=== PATIENT | female | born 1955 | race Caucasian/White ===

== ENCOUNTER 2017-11-21 14:31 | Emergency (ER) | payer SELFPAY ==
[2017-11-21] MEDS ORDERED: Meclizine HCl 25 MG TAB ONE (15:00)
[2017-11-21] MEDS ORDERED: Ondansetron ODT 4 MG TAB ONE (15:00)
[2017-11-21 15:13] LABS: #Lymphocytes 1.1 thou/uL (1.20-3.40); #Monocytes 0.2 thou/uL (0.11-0.59); #Neutrophils 4.9 thou/uL (1.40-6.50); %Basophils 0.6 % (0.0-1.0); %Eosinophils 0.2 % (0.0-10.0); %Lymphocytes 18.1 % (21.0-51.0); %Monocytes 3.3 % (0.0-10.0); %Neutrophils 77.7 % (42.0-75.0); Hemoglobin 12.9 g/dL (12.0-16.0); Mean Corpuscular HGB CONC 33.4 g/dL (32.0-36.0); Mean Corpuscular Hemoglobin 30.1 pg (27.0-31.0); Mean Corpuscular Volume 90.2 fl (81.0-99.0); Mean Platelet Volume 6.8 fL (7.4-10.4); Platelet Count 278 thou/uL (130-400); RBC Distribution Width 12.1 % (11.5-14.5); Red Blood Cell (RBC) Count 4.28 mill/uL (4.20-5.40); White Blood Cell (WBC) Count 6.3 thou/uL (4.8-10.8)
--- NOTE | 2017-11-21 15:28 | CT ---
NONCONTRAST HEAD CT: HISTORY: Vomiting. Dizziness. COMPARISON: None. TECHNIQUE: A noncontrast head CT is performed from the skull base to the skull vertex. FINDINGS: No parenchymal hemorrhage. No extraaxial hematoma. No midline shift. Basilar cisterns are patent. Age appropriate brain volume. Cortical pruitt white matter differentiation is preserved. The ventricles and sulci are patent and symmetric. Periventricular white matter hypodensities with chronic small vessel ischemic changes are noted. Remote lacunar infarct involving the posterior right lentiform nucleus. Hypodensities in the mid bra in are noted. IMPRESSION: No definite acute intracranial process. There are white matter hypodensities, as described above, wh ich are presumed to be chronic. If there is concern for acute insult, better interrogation with a br ain MRI is recommended. POS: [facility]
[2017-11-21 15:32] LABS: ALT (SGPT) 13 U/L (8-55); AST (SGOT) 15 U/L (5-34); Albumin 4.2 g/dL (3.4-4.8); Alkaline Phosphatase 73 U/L (40-150); Anion Gap 12 mmol/L (10-20); BUN (Urea Nitrogen) 15 mg/dL (9.8-20.1); Bilirubin, Total 0.5 mg/dL (0.2-1.2); Calc. Creatinine Clearance 0 mL/min (70-130); Calcium 9.4 mg/dL (7.8-10.44); Carbon Dioxide 26 mmol/L (23-31); Chloride 102 mmol/L (98-107); Estimated GFR-MDRD 72; Globulin 2.9 g/dL (2.4-3.5); Glucose 142 mg/dL (80-115); Potassium 4.1 mmol/L (3.5-5.1); Protein, Total 7.1 g/dL (6.0-8.3); Sodium 136 mmol/L (136-145)
[2017-11-21] MEDS ORDERED: Metoclopramide HCl 10 MG/2 ML VIAL ONE (15:36)
[2017-11-21 15:39] LABS: CKMB 0.8 ng/mL (0-6.6); Troponin I Less than 0.010 ng/mL (< 0.028)
[2017-11-21] MEDS ORDERED: Metoclopramide HCl 10 MG TAB PO SCH (16:15)
[2017-11-21] MEDS ORDERED: diphenhydrAMINE 12.5 MG/5 ML UDCUP ONE (17:22)
[2017-11-21] MEDS ORDERED: diphenhydrAMINE 50 MG/ML VIAL ONE (17:24)
== END 2017-11-21 19:10 | disposition home or self-care (01) ==
LOC: ERS 14:31
DX: H81.13 Benign paroxysmal vertigo, bilateral (principal); E11.9 Type 2 diabetes mellitus without complications; I25.10 Atherosclerotic heart disease of native coronary artery without angina pectoris; I10 Essential (primary) hypertension; F32.9 Major depressive disorder, single episode, unspecified
CPT/HCPCS: 36415; 70450; 80053; 82553; 84484; 85025; 93005; 96361; 96374; J1200; J2765; Q0162

== ENCOUNTER 2021-01-12 19:08 | Emergency (ER) | payer OTHER, MEDICARE | END 2021-01-12 20:46 | disposition home or self-care (01) | LOC: ERS 19:08 | DX: M25.511 Pain in right shoulder (principal); E11.9 Type 2 diabetes mellitus without complications; I10 Essential (primary) hypertension; F17.290 Nicotine dependence, other tobacco product, uncomplicated; I25.10 Atherosclerotic heart disease of native coronary artery without angina pectoris; V49.9XXA Car occupant (driver) (passenger) injured in unspecified traffic accident, initial encounter | CPT/HCPCS: 70450; 71045; 72125 ==

== ENCOUNTER 2022-01-31 22:57 | Emergency (ER) | payer MEDICARE ==
[2022-01-31 23:54] LABS: #Eosinphils 0.1 thou/uL (0.0-0.7); #Lymphocytes 2.1 thou/uL (1.20-3.40); #Monocytes 0.4 thou/uL (0.11-0.59); #Neutrophils 2.6 thou/uL (1.40-6.50); %Basophils 0.9 % (0.0-1.0); %Eosinophils 1.6 % (0.0-10.0); %Monocytes 7.2 % (0.0-10.0); %Neutrophils 50.4 % (42.0-75.0); Hemoglobin 12.9 g/dL (12.0-16.0); Mean Corpuscular HGB CONC 33.3 g/dL (32.0-36.0); Mean Corpuscular Hemoglobin 30.4 pg (27.0-31.0); Mean Corpuscular Volume 91.2 fL (78.0-98.0); Mean Platelet Volume 7.6 fL (7.4-10.4); Platelet Count 276 thou/uL (130-400); RBC Distribution Width 12.3 % (11.5-14.5); Red Blood Cell (RBC) Count 4.25 mill/uL (4.20-5.40); White Blood Cell (WBC) Count 5.1 thou/uL (4.8-10.8)
[2022-02-01 00:10] LABS: Phosphorus 4.6 mg/dL (2.3-4.7)
[2022-02-01 00:16] LABS: ALT (SGPT) 13 U/L (8-55); AST (SGOT) 12 U/L (5-34); Alkaline Phosphatase 107 U/L (40-110); Anion Gap 15 mmol/L (10-20); BUN (Urea Nitrogen) 20 mg/dL (9.8-20.1); Bilirubin, Total 0.3 mg/dL (0.2-1.2); Calc. Creatinine Clearance 0 mL/min (70-130); Calcium 9.6 mg/dL (7.8-10.44); Carbon Dioxide 25 mmol/L (23-31); Chloride 96 mmol/L (98-107); Globulin 2.8 g/dL (2.4-3.5); Potassium 4.5 mmol/L (3.5-5.1); Protein, Total 6.8 g/dL (5.8-8.1); Sodium 131 mmol/L (136-145)
[2022-02-01 00:18] LABS: Glucose 699 mg/dL (80-115)
[2022-02-01] MEDS ORDERED: Insulin Regular 300 UNITS/3 ML VIAL ONE (00:46)
== END 2022-02-01 02:58 | disposition home or self-care (01) ==
LOC: ERS 22:57
DX: E11.65 Type 2 diabetes mellitus with hyperglycemia (principal); I25.10 Atherosclerotic heart disease of native coronary artery without angina pectoris; I10 Essential (primary) hypertension; F17.290 Nicotine dependence, other tobacco product, uncomplicated; Z79.899 Other long term (current) drug therapy
CPT/HCPCS: 36415; 36416; 80053; 82010; 83735; 84100; 85025; J1815

== ENCOUNTER 2022-02-01 21:49 | Emergency (ER) | payer MEDICARE ==
[2022-02-01 22:32] LABS: #Eosinphils 0.1 thou/uL (0.0-0.7); #Lymphocytes 1.8 thou/uL (1.20-3.40); #Monocytes 0.4 thou/uL (0.11-0.59); %Basophils 0.6 % (0.0-1.0); %Eosinophils 1.7 % (0.0-10.0); %Lymphocytes 33.9 % (21.0-51.0); %Monocytes 7.3 % (0.0-10.0); %Neutrophils 56.5 % (42.0-75.0); Hemoglobin 12.2 g/dL (12.0-16.0); Mean Corpuscular HGB CONC 32.9 g/dL (32.0-36.0); Mean Corpuscular Hemoglobin 30.1 pg (27.0-31.0); Mean Corpuscular Volume 91.4 fL (78.0-98.0); Mean Platelet Volume 7.5 fL (7.4-10.4); Platelet Count 274 thou/uL (130-400); RBC Distribution Width 12.5 % (11.5-14.5); Red Blood Cell (RBC) Count 4.06 mill/uL (4.20-5.40); White Blood Cell (WBC) Count 5.2 thou/uL (4.8-10.8)
[2022-02-01 22:51] LABS: ALT (SGPT) 12 U/L (8-55); AST (SGOT) 15 U/L (5-34); Albumin 3.8 g/dL (3.4-4.8); Alkaline Phosphatase 89 U/L (40-110); Anion Gap 15 mmol/L (10-20); BUN (Urea Nitrogen) 12 mg/dL (9.8-20.1); Bilirubin, Total 0.2 mg/dL (0.2-1.2); Calc. Creatinine Clearance 0 mL/min (70-130); Calcium 8.8 mg/dL (7.8-10.44); Carbon Dioxide 23 mmol/L (23-31); Chloride 101 mmol/L (98-107); Globulin 2.6 g/dL (2.4-3.5); Potassium 4.4 mmol/L (3.5-5.1); Protein, Total 6.4 g/dL (5.8-8.1); Sodium 135 mmol/L (136-145)
[2022-02-01 23:02] LABS: Bilirubin Negative (Negative); Blood, Urine Negative (Negative); Clarity Clear (Clear); Glucose, Urine (Dipstick) Greater than 1000 mg/dL (Negative); Ketone, Urine Negative (Negative); Leukocyte Negative Leu/uL (Negative); Nitrite Negative (Negative); Protein, Urine (Dipstick) Negative (Neg-Trace); Specific Gravity, Urine 1.033 (1.002-1.036); Urobilinogen Normal mg/dL (Less than 2); pH, Urine 5.5 (5.0-9.0)
[2022-02-01 23:06] LABS: Glucose 681 mg/dL (80-115)
== END 2022-02-01 23:18 | disposition home or self-care (01) ==
LOC: ERS 21:49
DX: E11.65 Type 2 diabetes mellitus with hyperglycemia (principal); I25.10 Atherosclerotic heart disease of native coronary artery without angina pectoris; I10 Essential (primary) hypertension; Z79.899 Other long term (current) drug therapy; Z79.4 Long term (current) use of insulin; F17.290 Nicotine dependence, other tobacco product, uncomplicated
CPT/HCPCS: 36415; 36416; 80053; 81003; 82010; 83735; 84100; 85025; 99284; J1815

== ENCOUNTER 2022-02-17 16:41 | Inpatient (IN) | payer MEDICARE ==
[2022-02-17] MEDS ORDERED: Ondansetron PF 4 MG/2 ML Vial ONE (17:02)
[2022-02-17 17:07] LABS: Actual Bicarbonate (HCO3v) 17 mEq/L (22-28); Base Excess -10.2 mEq/L (-2.0 to +3.0); Calcium, Ionized (venous) 1.28 mmol/L (1.16-1.32); Chloride (VBG) 92 mmol/L (98-106); Hemoglobin (Hb) 14.4 g/dL (11.7-16.1); Potassium (VBG) 4.17 mmol/L (3.70-5.30); Sodium 135.2 mmol/L (133-146)
[2022-02-17 17:09] LABS: pH (venous) 7.24 (7.32-7.43)
[2022-02-17 17:11] LABS: #Lymphocytes 0.6 thou/uL (1.20-3.40); #Monocytes 0.5 thou/uL (0.11-0.59); #Neutrophils 10.9 thou/uL (1.40-6.50); %Eosinophils 0.1 % (0.0-10.0); %Lymphocytes 5.4 % (21.0-51.0); %Monocytes 3.9 % (0.0-10.0); %Neutrophils 90.7 % (42.0-75.0); Hemoglobin 13.9 g/dL (12.0-16.0); Mean Corpuscular HGB CONC 32.9 g/dL (32.0-36.0); Mean Corpuscular Hemoglobin 30.7 pg (27.0-31.0); Mean Corpuscular Volume 93.2 fL (78.0-98.0); Mean Platelet Volume 6.8 fL (7.4-10.4); Platelet Count 335 thou/uL (130-400); RBC Distribution Width 12.8 % (11.5-14.5); Red Blood Cell (RBC) Count 4.52 mill/uL (4.20-5.40)
[2022-02-17 17:24] LABS: ALT (SGPT) 18 U/L (8-55); AST (SGOT) 17 U/L (5-34); Albumin 4.6 g/dL (3.4-4.8); Alkaline Phosphatase 145 U/L (40-110); Anion Gap 30 mmol/L (10-20); BUN (Urea Nitrogen) 45 mg/dL (9.8-20.1); Bilirubin, Total 0.7 mg/dL (0.2-1.2); Calc. Creatinine Clearance 0 mL/min (70-130); Calcium 10.2 mg/dL (7.8-10.44); Carbon Dioxide 15 mmol/L (23-31); Chloride 92 mmol/L (98-107); Globulin 3.2 g/dL (2.4-3.5); Glucose 534 mg/dL (80-115); Lipase 20 U/L (8-78); Potassium 4.2 mmol/L (3.5-5.1); Protein, Total 7.8 g/dL (5.8-8.1); Sodium 133 mmol/L (136-145)
[2022-02-17] MEDS ORDERED: cefTRIAXone\\ROCEPHIN 1 GM VIAL ONE (17:45)
[2022-02-17] MEDS ORDERED: INSULIN REGULAR IN 0.9 % NACL 100 UNIT/100 ML BAG ONE (18:45)
[2022-02-17 18:46] LABS: Bilirubin 1+ (Negative); Blood, Urine Negative (Negative); Clarity Clear (Clear); Glucose, Urine (Dipstick) Greater than 1000 mg/dL (Negative); Ketone, Urine 80 mg/dL (Negative); Leukocyte Negative Leu/uL (Negative); Nitrite Negative (Negative); Protein, Urine (Dipstick) Negative (Neg-Trace); Specific Gravity, Urine 1.026 (1.002-1.036); Urobilinogen Normal mg/dL (Less than 2)
[2022-02-17] MEDS ORDERED: NS 0.9% w/ 20 MEQ KCL 1,000 ML ONE (19:05)
[2022-02-17] MEDS ORDERED: Dextrose 5 %-0.45 % NaCl 1,000 ML IV PRN (19:28)
[2022-02-17] MEDS ORDERED: Sodium Chloride 0.9% 1,000 ML IV PRN ×4 (19:28)
[2022-02-17] MEDS ORDERED: Electrolyte Replacement Protocol 1 EACH IVPB PRN (19:28)
[2022-02-17] MEDS ORDERED: NS 0.9% w/ 20 MEQ KCL 1,000 ML IV PRN ×2 (19:28)
[2022-02-17] MEDS ORDERED: Zolpidem Tartrate 5 MG TAB PO PRN (19:28)
[2022-02-17] MEDS ORDERED: Bisacodyl 5 MG TAB PO PRN (19:28)
[2022-02-17] MEDS ORDERED: Ondansetron PF 4 MG/2 ML Vial IVP PRN (19:28)
[2022-02-17] MEDS ORDERED: HYDROcodone/Acetaminophen 5/325 mg Tablet PO PRN (19:28)
[2022-02-17] MEDS ORDERED: HUMULIN R 100 UNITS in Sodium Chloride 0.9% 100 ML IVPB SCH (19:30)
[2022-02-17 20:19] LABS: Anion Gap 24 mmol/L (10-20); BUN (Urea Nitrogen) 38 mg/dL (9.8-20.1); Calc. Creatinine Clearance 0 mL/min (70-130); Carbon Dioxide 14 mmol/L (23-31); Chloride 101 mmol/L (98-107); Glucose 356 mg/dL (80-115); Potassium 4.4 mmol/L (3.5-5.1); Sodium 135 mmol/L (136-145)
[2022-02-17 20:21] LABS: Troponin I Less than 0.010 ng/mL (< 0.028)
[2022-02-17 20:59] LABS: SARS-CoV-2 NAA Rapid Test Not Detected (NotDetected)
[2022-02-17] MEDS: Nicotine 21 MG PATCH TD SCH (21:05)
[2022-02-17 22:44] VITALS: BMI 24.5
[2022-02-17] MEDS: Acetaminophen 325 MG TAB PO PRN (23:24)
[2022-02-18 00:44] LABS: Lactic Acid 2.1 mmol/L (0.5-2.2)
[2022-02-18 00:57] LABS: BUN (Urea Nitrogen) 32 mg/dL (9.8-20.1); Calc. Creatinine Clearance 35 mL/min (70-130); Calcium 9.2 mg/dL (7.8-10.44); Carbon Dioxide Less than 8 mmol/L (23-31); Chloride 107 mmol/L (98-107); Glucose 358 mg/dL (80-115); Potassium 5.5 mmol/L (3.5-5.1); Sodium 134 mmol/L (136-145)
[2022-02-18 03:47] LABS: #Lymphocytes 2.3 thou/uL (1.20-3.40); #Monocytes 0.6 thou/uL (0.11-0.59); #Neutrophils 7.8 thou/uL (1.40-6.50); %Basophils 0.2 % (0.0-1.0); %Eosinophils 0.2 % (0.0-10.0); %Lymphocytes 21.3 % (21.0-51.0); %Monocytes 5.8 % (0.0-10.0); %Neutrophils 72.5 % (42.0-75.0); Mean Corpuscular Hemoglobin 31.1 pg (27.0-31.0); Mean Corpuscular Volume 94.1 fL (78.0-98.0); Mean Platelet Volume 6.6 fL (7.4-10.4); Platelet Count 262 thou/uL (130-400); RBC Distribution Width 12.9 % (11.5-14.5); Red Blood Cell (RBC) Count 3.54 mill/uL (4.20-5.40); White Blood Cell (WBC) Count 10.8 thou/uL (4.8-10.8)
[2022-02-18 04:08] LABS: ALT (SGPT) 9 U/L (8-55); AST (SGOT) 13 U/L (5-34); Albumin 3.2 g/dL (3.4-4.8); Alkaline Phosphatase 93 U/L (40-110); Anion Gap 14 mmol/L (10-20); BUN (Urea Nitrogen) 27 mg/dL (9.8-20.1); Bilirubin, Total 0.4 mg/dL (0.2-1.2); Calc. Creatinine Clearance 44 mL/min (70-130); Calcium 8.4 mg/dL (7.8-10.44); Carbon Dioxide 18 mmol/L (23-31); Chloride 108 mmol/L (98-107); Globulin 2.4 g/dL (2.4-3.5); Glucose 148 mg/dL (80-115); Potassium 3.9 mmol/L (3.5-5.1); Protein, Total 5.6 g/dL (5.8-8.1); Sodium 136 mmol/L (136-145)
[2022-02-18 04:12] LABS: Troponin I Less than 0.010 ng/mL (< 0.028)
[2022-02-18] MEDS: D5 1/2 NS w/20 mEq KCL 1,000 ML IV PRN ×3 (04:59→13:07)
[2022-02-18] MEDS ORDERED: Potassium Chloride 20 MEQ TAB PO SCH (08:30)
[2022-02-18] MEDS ORDERED: HumaLOG 300 UNITS/3 ML VIAL SC PRN ×2 (08:45)
[2022-02-18] MEDS ORDERED: Dextrose 5% in Water 1,000 ML IV PRN (08:45)
[2022-02-18] MEDS ORDERED: Dextrose 50% Abboject 50 ML SYRINGE IVP PRN (08:45)
[2022-02-18] MEDS: Famotidine 20 MG TAB PO SCH (09:07)
[2022-02-18] MEDS: Insulin Glargine 30 UNITS/0.3 ML VIAL SC SCH (09:08)
[2022-02-18] MEDS: Enoxaparin Sodium 30 MG/0.3 ML SYRINGE SC SCH (09:08)
[2022-02-18 10:03] LABS: Anion Gap 14 mmol/L (10-20); BUN (Urea Nitrogen) 20 mg/dL (9.8-20.1); Calc. Creatinine Clearance 46 mL/min (70-130); Calcium 8.9 mg/dL (7.8-10.44); Carbon Dioxide 20 mmol/L (23-31); Chloride 105 mmol/L (98-107); Glucose 154 mg/dL (80-115); Potassium 4.1 mmol/L (3.5-5.1); Sodium 135 mmol/L (136-145)
[2022-02-18 10:12] LABS: Phosphorus 1.6 mg/dL (2.3-4.7)
[2022-02-18] MEDS: PHOS-NAK 1 PKT PACK PO SCH ×4 (11:21→22:17)
[2022-02-18 15:42] LABS: Anion Gap 13 mmol/L (10-20); BUN (Urea Nitrogen) 14 mg/dL (9.8-20.1); Calc. Creatinine Clearance 50 mL/min (70-130); Calcium 8.4 mg/dL (7.8-10.44); Carbon Dioxide 19 mmol/L (23-31); Chloride 107 mmol/L (98-107); Glucose 232 mg/dL (80-115); Potassium 4.5 mmol/L (3.5-5.1); Sodium 134 mmol/L (136-145)
[2022-02-18 16:17] LABS: Phosphorus 1.6 mg/dL (2.3-4.7)
[2022-02-18] MEDS: NS 0.9% w/ 20 MEQ KCL 1,000 ML/1,000 ML BAG IV SCH ×2 (16:43→22:17)
[2022-02-18] MEDS: HumaLOG 300 UNITS/3 ML VIAL SC SCH (16:44)
[2022-02-18] MEDS ORDERED: cefTRIAXone\\ROCEPHIN 1 GM in Sodium Chloride 0.9% 100 ML IVPB SCH (18:00)
[2022-02-18] MEDS ORDERED: Electrolyte Replacement Protocol FS PRN (19:15)
[2022-02-18] MEDS: hydrOXYzine 25 MG TAB PO SCH (20:01)
[2022-02-18] MEDS: Nicotine 21 MG PATCH TD SCH (20:01)
[2022-02-18] MEDS: Acetaminophen 325 MG TAB PO PRN (20:12)
[2022-02-18] MEDS ORDERED: Atorvastatin Calcium 40 MG TAB PO SCH (21:00)
[2022-02-18] MEDS ORDERED: Non-Formulary Item 1 EACH (Insulin Glargine,Hum.Rec.Anlog [Lantus Solostar] 100 UNIT/ML P SC SCH (21:00)
[2022-02-18] MEDS ORDERED: traZODone HCl 50 MG TAB PO SCH (21:00)
[2022-02-19 03:57] LABS: #Lymphocytes 2.7 thou/uL (1.20-3.40); #Monocytes 0.5 thou/uL (0.11-0.59); %Basophils 0.3 % (0.0-1.0); %Eosinophils 0.5 % (0.0-10.0); %Lymphocytes 37.3 % (21.0-51.0); %Monocytes 6.3 % (0.0-10.0); %Neutrophils 55.5 % (42.0-75.0); Hemoglobin 11.5 g/dL (12.0-16.0); Mean Corpuscular HGB CONC 33.2 g/dL (32.0-36.0); Mean Corpuscular Volume 93.4 fL (78.0-98.0); Mean Platelet Volume 6.8 fL (7.4-10.4); Platelet Count 217 thou/uL (130-400); RBC Distribution Width 12.9 % (11.5-14.5); Red Blood Cell (RBC) Count 3.72 mill/uL (4.20-5.40); White Blood Cell (WBC) Count 7.3 thou/uL (4.8-10.8)
[2022-02-19 05:26] LABS: Phosphorus 2.4 mg/dL (2.3-4.7)
[2022-02-19] MEDS: NS 0.9% w/ 20 MEQ KCL 1,000 ML/1,000 ML BAG IV SCH (05:30)
[2022-02-19 06:44] LABS: Anion Gap 13 mmol/L (10-20); BUN (Urea Nitrogen) 6 mg/dL (9.8-20.1); Calc. Creatinine Clearance 64 mL/min (70-130); Calcium 8.4 mg/dL (7.8-10.44); Carbon Dioxide 20 mmol/L (23-31); Chloride 107 mmol/L (98-107); Glucose 140 mg/dL (80-115); Potassium 4.3 mmol/L (3.5-5.1); Sodium 136 mmol/L (136-145)
[2022-02-19 07:46] VITALS: TEMP 98
[2022-02-19] MEDS: Famotidine 20 MG TAB PO SCH (08:34)
[2022-02-19] MEDS: Insulin Glargine 30 UNITS/0.3 ML VIAL SC SCH (08:34)
[2022-02-19] MEDS: hydrOXYzine 25 MG TAB PO SCH (08:34)
[2022-02-19] MEDS: Enoxaparin Sodium 30 MG/0.3 ML SYRINGE SC SCH (08:35)
[2022-02-19] MEDS: HumaLOG 300 UNITS/3 ML VIAL SC SCH (08:35)
[2022-02-19] MEDS ORDERED: Clopidogrel Bisulfate 75 MG TAB PO SCH (09:00)
[2022-02-19] MEDS ORDERED: Citalopram 20 MG TAB PO SCH (09:00)
[2022-02-19] MEDS ORDERED: Bupropion 150 MG XL TAB PO SCH (09:00)
== END 2022-02-19 10:22 | disposition home or self-care (01) | DRG 637 ==
LOC: ERS 16:41 → IMCU/EMU 19:21
PROVIDERS: ADMIT Internal Medicine; ATTEND Internal Medicine
DX: E10.10 Type 1 diabetes mellitus with ketoacidosis without coma (principal); G93.41 Metabolic encephalopathy; N17.9 Acute kidney failure, unspecified; E87.2 Acidosis; E87.1 Hypo-osmolality and hyponatremia; I10 Essential (primary) hypertension; I25.10 Atherosclerotic heart disease of native coronary artery without angina pectoris; F17.290 Nicotine dependence, other tobacco product, uncomplicated; F32.A Depression, unspecified; Z20.822 Contact with and (suspected) exposure to COVID-19; Z90.49 Acquired absence of other specified parts of digestive tract; Z90.710 Acquired absence of both cervix and uterus; Z91.19 Patient's noncompliance with other medical treatment and regimen; Z88.0 Allergy status to penicillin; Z95.5 Presence of coronary angioplasty implant and graft
CPT/HCPCS: 36415; 36416; 70450; 71045; 80048; 80053; 81003; 82010; 82805; 83605; 83690; 83930; 84100; 84484; 85025; 87040; 87086; 93005; 96361; 96374; J0696; J1650; J1815; J2405; J3480; J3490; J7042; U0002

== ENCOUNTER 2022-02-22 09:18 | Observation (INO) | payer MEDICARE, OTHER ==
[2022-02-22 09:44] LABS: #Eosinphils 0.2 thou/uL (0.0-0.7); #Lymphocytes 2.5 thou/uL (1.20-3.40); #Monocytes 0.5 thou/uL (0.11-0.59); #Neutrophils 2.1 thou/uL (1.40-6.50); %Basophils 0.8 % (0.0-1.0); %Eosinophils 3.5 % (0.0-10.0); %Lymphocytes 46.7 % (21.0-51.0); %Monocytes 9.4 % (0.0-10.0); %Neutrophils 39.7 % (42.0-75.0); Hemoglobin 10.4 g/dL (12.0-16.0); Mean Corpuscular HGB CONC 32.7 g/dL (32.0-36.0); Mean Corpuscular Hemoglobin 31.1 pg (27.0-31.0); Mean Corpuscular Volume 95.1 fL (78.0-98.0); Platelet Count 179 thou/uL (130-400); RBC Distribution Width 12.5 % (11.5-14.5); Red Blood Cell (RBC) Count 3.35 mill/uL (4.20-5.40); White Blood Cell (WBC) Count 5.3 thou/uL (4.8-10.8)
[2022-02-22 09:57] LABS: PTT 24.2 sec (22.9-36.1)
[2022-02-22 09:59] LABS: Anion Gap 13 mmol/L (10-20); BUN (Urea Nitrogen) 18 mg/dL (9.8-20.1); Calc. Creatinine Clearance 0 mL/min (70-130); Carbon Dioxide 26 mmol/L (23-31); Chloride 101 mmol/L (98-107); Potassium 4.4 mmol/L (3.5-5.1); Sodium 136 mmol/L (136-145)
[2022-02-22 10:00] LABS: ALT (SGPT) 11 U/L (8-55); AST (SGOT) 20 U/L (5-34); Albumin 2.8 g/dL (3.4-4.8); Alkaline Phosphatase 96 U/L (40-110); Bilirubin, Total 0.3 mg/dL (0.2-1.2); Calcium 7.8 mg/dL (7.8-10.44); Globulin 2.1 g/dL (2.4-3.5); Glucose 177 mg/dL (80-115); Protein, Total 4.9 g/dL (5.8-8.1)
[2022-02-22 10:16] LABS: Acetaminophen Less than 10.0 mcg/mL (10.0-30.0); Alcohol Less than 10 mg/dL (Less than 10); CK (CPK) 60 U/L (29-168); Salicylate Less than 8.0 mg/dL (15.0-30.0)
[2022-02-22 10:20] LABS: Analyzer IN Cardio ER; Base Excess -19.8 mEq/L (-2.0 to +3.0); Calcium, Ionized (venous) 0.43 mmol/L (1.16-1.32); Chloride (VBG) 134 mmol/L (98-106); Hemoglobin (Hb) 2.7 g/dL (11.7-16.1); Potassium (VBG) 0.83 mmol/L (3.70-5.30); Sodium 140.4 mmol/L (133-146)
[2022-02-22 10:22] LABS: pH (venous) 7.18 (7.32-7.43)
[2022-02-22 10:23] LABS: Actual Bicarbonate (HCO3v) 7 mEq/L (22-28)
[2022-02-22 11:30] LABS: Bilirubin Negative (Negative); Blood, Urine Negative (Negative); Clarity Clear (Clear); Glucose, Urine (Dipstick) Greater than 1000 mg/dL (Negative); Ketone, Urine Negative (Negative); Leukocyte Negative Leu/uL (Negative); Nitrite Negative (Negative); Protein, Urine (Dipstick) Negative (Neg-Trace); Specific Gravity, Urine 1.015 (1.002-1.036); Urobilinogen Normal mg/dL (Less than 2); pH, Urine 5.5 (5.0-9.0)
[2022-02-22 11:38] LABS: Amphetamine Not Detected (NotDetected); Barbiturates Screen Not Detected (NotDetected); Benzodiazepine Screen Not Detected (NotDetected); Cocaine Metabolite Screen Not Detected (NotDetected); Methadone Not Detected (NotDetected); Methamphetamine Not Detected (NotDetected); Opiate Screen Not Detected (NotDetected); Oxycodone Screen Not Detected (NotDetected); Phencyclidine (PCP) Not Detected (NotDetected); THC/Cannabinoid Screen Detected (NotDetected); Tricyclic Screen Not Detected (NotDetected)
[2022-02-22 12:47] LABS: Lactic Acid 2.1 mmol/L (0.5-2.2)
[2022-02-22] MEDS ORDERED: Ondansetron PF 4 MG/2 ML Vial IVP PRN (13:12)
[2022-02-22] MEDS ORDERED: Senokot S 8.6-50 MG TAB PO PRN (13:12)
[2022-02-22] MEDS ORDERED: Dextrose 5% in Water 1,000 ML IV PRN (13:12)
[2022-02-22] MEDS ORDERED: Ondansetron ODT 4 MG TAB PO PRN (13:12)
[2022-02-22] MEDS ORDERED: Bisacodyl 5 MG TAB PO PRN (13:12)
[2022-02-22] MEDS ORDERED: Bisacodyl 10 MG SUPP PR PRN (13:12)
[2022-02-22] MEDS ORDERED: Acetaminophen 325 MG TAB PO PRN (13:12)
[2022-02-22] MEDS ORDERED: HumaLOG 300 UNITS/3 ML VIAL SC PRN (13:12)
[2022-02-22] MEDS ORDERED: Dextrose 50% Abboject 50 ML SYRINGE SLOW IVP PRN (13:12)
[2022-02-22] MEDS: Sodium Chloride 0.9% 1,000 ML IV SCH (13:50)
[2022-02-22 14:21] LABS: Actual Bicarbonate (HCO3v) 23 mEq/L (22-28); Analyzer IN Cardio ER; Base Excess -1.8 mEq/L (-2.0 to +3.0); Calcium, Ionized (venous) 1.02 mmol/L (1.16-1.32); Chloride (VBG) 106 mmol/L (98-106); Hemoglobin (Hb) 12.2 g/dL (11.7-16.1); Potassium (VBG) 4.18 mmol/L (3.70-5.30); Sodium 132.7 mmol/L (133-146)
[2022-02-22 14:56] LABS: Troponin I Less than 0.010 ng/mL (< 0.028)
[2022-02-22 17:18] VITALS: BMI 25.8
[2022-02-22 17:53] LABS: Hemoglobin A1c Greater than 14.0 % (4.0-6.0)
[2022-02-22 18:17] LABS: Troponin I Less than 0.010 ng/mL (< 0.028)
[2022-02-22] MEDS ORDERED: Nicotine 21 MG PATCH TD SCH (18:45)
[2022-02-22] MEDS: HumaLOG 300 UNITS/3 ML VIAL SC PRN (19:14)
[2022-02-22] MEDS ORDERED: Insulin Glargine 30 UNITS/0.3 ML VIAL SC SCH (21:00)
[2022-02-22] MEDS ORDERED: traZODone HCl 50 MG TAB PO SCH (21:00)
[2022-02-22] MEDS ORDERED: Atorvastatin Calcium 40 MG TAB PO SCH (21:00)
[2022-02-23] MEDS: Sodium Chloride 0.9% 1,000 ML IV SCH ×2 (00:02→10:16)
[2022-02-23 04:53] LABS: #Eosinphils 0.2 thou/uL (0.0-0.7); #Lymphocytes 2.1 thou/uL (1.20-3.40); #Monocytes 0.4 thou/uL (0.11-0.59); #Neutrophils 2.6 thou/uL (1.40-6.50); %Basophils 0.7 % (0.0-1.0); %Eosinophils 3.2 % (0.0-10.0); %Lymphocytes 39.9 % (21.0-51.0); %Neutrophils 48.2 % (42.0-75.0); Hemoglobin 10.6 g/dL (12.0-16.0); Mean Corpuscular HGB CONC 32.6 g/dL (32.0-36.0); Mean Corpuscular Hemoglobin 30.8 pg (27.0-31.0); Mean Corpuscular Volume 94.5 fL (78.0-98.0); Mean Platelet Volume 7.7 fL (7.4-10.4); Platelet Count 191 thou/uL (130-400); RBC Distribution Width 12.6 % (11.5-14.5); Red Blood Cell (RBC) Count 3.44 mill/uL (4.20-5.40); White Blood Cell (WBC) Count 5.3 thou/uL (4.8-10.8)
[2022-02-23 05:23] LABS: ALT (SGPT) 14 U/L (8-55); AST (SGOT) 22 U/L (5-34); Alkaline Phosphatase 94 U/L (40-110); Anion Gap 11 mmol/L (10-20); BUN (Urea Nitrogen) 13 mg/dL (9.8-20.1); Bilirubin, Direct 0.1 mg/dL (0.1-0.3); Bilirubin, Total 0.2 mg/dL (0.2-1.2); Calc. Creatinine Clearance 75 mL/min (70-130); Calcium 8.3 mg/dL (7.8-10.44); Carbon Dioxide 26 mmol/L (23-31); Cardiac Risk 2.9 (Less than 4.5); Chloride 107 mmol/L (98-107); Cholesterol 125 mg/dl (< 200 Desired); Glucose 166 mg/dL (80-115); HDL Cholesterol 43 mg/dL (>60 Neg Risk); LDL Cholesterol, Calculated 61 mg/dL; Potassium 3.9 mmol/L (3.5-5.1); Protein, Total 5.2 g/dL (5.8-8.1); Sodium 140 mmol/L (136-145); Triglycerides 104 mg/dL (Less than 150)
[2022-02-23] MEDS ORDERED: Citalopram 20 MG TAB PO SCH (09:00)
[2022-02-23] MEDS ORDERED: Clopidogrel Bisulfate 75 MG TAB PO SCH (09:00)
[2022-02-23] MEDS ORDERED: Bupropion 150 MG XL TAB PO SCH (09:00)
[2022-02-23] MEDS ORDERED: Enoxaparin Sodium 40 MG/0.4 ML SYRINGE SC SCH (09:00)
[2022-02-23] MEDS ORDERED: Lisinopril 5 MG TAB PO SCH ×2 (09:00→09:30)
[2022-02-23 12:44] VITALS: BP 177/79; TEMP 98.4
[2022-02-23] MEDS: HumaLOG 300 UNITS/3 ML VIAL SC PRN (13:09)
[2022-02-24] MEDS ORDERED: Lisinopril 5 MG TAB PO SCH ×2 (09:00)
== END 2022-02-23 13:27 | disposition home or self-care (01) ==
LOC: ERS 09:18 → ERHOLD 13:12 → INTOOBSV 13:12 → 2NO 17:05
PROVIDERS: ADMIT Internal Medicine; ATTEND Internal Medicine
DX: I95.1 Orthostatic hypotension (principal); E11.10 Type 2 diabetes mellitus with ketoacidosis without coma; I10 Essential (primary) hypertension; I25.10 Atherosclerotic heart disease of native coronary artery without angina pectoris; D64.9 Anemia, unspecified; E86.0 Dehydration; R94.6 Abnormal results of thyroid function studies; Z87.891 Personal history of nicotine dependence; Z79.02 Long term (current) use of antithrombotics/antiplatelets; Z79.4 Long term (current) use of insulin; Z79.899 Other long term (current) drug therapy; Z88.0 Allergy status to penicillin
CPT/HCPCS: 36415; 36416; 51701; 70450; 71045; 80048; 80053; 80061; 80076; 80306; 80307; 81003; 82550; 82805; 83036; 83605; 83690; 83735; 83880; 84439; 84443; 84484; 85025; 85610; 85730; 87040; 93005; 94760; 96360; 96372; G0378; J1650; J1815; J7050

== ENCOUNTER 2022-07-09 21:39 | Inpatient (IN) | payer OTHER ==
[2022-07-09 22:45] LABS: Base Excess -24.9 mEq/L (-2.0 to +3.0); Chloride (VBG) 96 mmol/L (98-106); Hemoglobin (Hb) 12.3 g/dL (11.7-16.1); Sodium 130.8 mmol/L (133-146)
[2022-07-09 22:48] LABS: Actual Bicarbonate (HCO3v) 6 mEq/L (22-28); Potassium (VBG) 6.83 mmol/L (3.70-5.30); pH (venous) 6.97 (7.32-7.43)
[2022-07-09 22:52] LABS: Bilirubin Negative (Negative); Blood, Urine Negative (Negative); Clarity Clear (Clear); Glucose, Urine (Dipstick) Greater than 1000 mg/dL (Negative); Ketone, Urine Greater than 150 mg/dL (Negative); Leukocyte Negative Leu/uL (Negative); Nitrite Negative (Negative); Protein, Urine (Dipstick) Negative (Neg-Trace); Specific Gravity, Urine 1.024 (1.002-1.036); Urobilinogen Normal mg/dL (Less than 2)
[2022-07-09] MEDS ORDERED: INSULIN REGULAR IN 0.9 % NACL 100 UNIT/100 ML BAG ONE (22:57)
[2022-07-09] MEDS ORDERED: Calcium Chloride 1 GM/10 ML Abboject SYRINGE ONE (22:57)
[2022-07-09] MEDS ORDERED: Sodium Bicarb 50 MEQ/50 ML VIAL ONE (22:57)
[2022-07-09 23:02] LABS: Hemoglobin 11.1 g/dL (12.0-16.0); Mean Corpuscular HGB CONC 30.8 g/dL (32.0-36.0); Mean Corpuscular Hemoglobin 31.4 pg (27.0-31.0); Mean Platelet Volume 8.6 fL (7.4-10.4); Platelet Count 308 10x3/uL (130-400); RBC Distribution Width 12.6 % (11.5-14.5); Red Blood Cell (RBC) Count 3.54 mill/uL (4.20-5.40); White Blood Cell (WBC) Count 21.8 10x3/uL (4.8-10.8)
[2022-07-09 23:14] LABS: ALT (SGPT) 17 U/L (8-55); AST (SGOT) 19 U/L (5-34); Albumin 3.8 g/dL (3.4-4.8); Alkaline Phosphatase 127 U/L (40-110); BUN (Urea Nitrogen) 26 mg/dL (9.8-20.1); Bilirubin, Total 0.4 mg/dL (0.2-1.2); Calc. Creatinine Clearance 0 mL/min (70-130); Calcium 9.2 mg/dL (7.8-10.44); Chloride 95 mmol/L (98-107); Estimated GFR 26; Globulin 2.9 g/dL (2.4-3.5); Lipase 16 U/L (8-78); Phosphorus 8.1 mg/dL (2.3-4.7); Protein, Total 6.7 g/dL (5.8-8.1); Sodium 130 mmol/L (136-145)
[2022-07-09 23:16] LABS: Band 7 % (5-11); Lymphocytes 16 % (21-51); MDiff Complete? YES; Monocytes 1 % (0-10); Neutrophil 76 % (42-75)
[2022-07-09 23:19] LABS: Magnesium 2.6 mg/dL (1.6-2.6)
[2022-07-09 23:22] LABS: Carbon Dioxide Less than 8 mmol/L (23-31); Glucose 924 mg/dL (80-115); Potassium 6.8 mmol/L (3.5-5.1)
[2022-07-10] MEDS ORDERED: NS 0.9% w/ 20 MEQ KCL 1,000 ML IV PRN (00:06)
[2022-07-10] MEDS ORDERED: Sodium Chloride 0.9% 1,000 ML IV PRN ×2 (00:06)
[2022-07-10] MEDS ORDERED: Electrolyte Replacement Protocol 1 EACH IVPB SCH (00:06)
[2022-07-10] MEDS ORDERED: Dextrose 5 %-0.45 % NaCl 1,000 ML IV PRN (00:06)
[2022-07-10] MEDS ORDERED: Acetaminophen 325 MG TAB PO PRN (00:11)
[2022-07-10] MEDS ORDERED: Acetaminophen 650 MG Suppository PR PRN (00:11)
[2022-07-10] MEDS ORDERED: Ondansetron ODT 4 MG TAB PO PRN (00:11)
[2022-07-10] MEDS ORDERED: Ondansetron PF 4 MG/2 ML Vial IVP PRN (00:11)
[2022-07-10] MEDS ORDERED: Sodium Bicarbonate 150 MEQ in Sterile Water Injection 1,000 ML IV SCH (00:15)
[2022-07-10 00:23] LABS: SARS-CoV-2 NAA Rapid Test Not Detected (NotDetected)
[2022-07-10 00:56] LABS: Lactic Acid 6.8 mmol/L (0.5-2.2)
[2022-07-10 00:57] LABS: BUN (Urea Nitrogen) 25 mg/dL (9.8-20.1); Calc. Creatinine Clearance 0 mL/min (70-130); Calcium 9.9 mg/dL (7.8-10.44); Chloride 100 mmol/L (98-107); Estimated GFR 27; Potassium 5.9 mmol/L (3.5-5.1); Sodium 136 mmol/L (136-145)
[2022-07-10 01:00] LABS: Carbon Dioxide Less than 8 mmol/L (23-31); Glucose 776 mg/dL (80-115)
[2022-07-10] MEDS ORDERED: HUMULIN R 100 UNITS in Sodium Chloride 0.9% 100 ML IVPB SCH (01:00)
[2022-07-10] MEDS: D5 1/2 NS w/20 mEq KCL 1,000 ML IV PRN ×3 (04:55→20:00)
[2022-07-10 06:37] VITALS: BMI 24.7
[2022-07-10] MEDS ORDERED: Vancomycin Sliding Scale 1 EACH IVPB SCH (07:00)
[2022-07-10] MEDS ORDERED: Cefepime 1 GM in Sodium Chloride 0.9% 100 ML IVPB SCH (07:30)
[2022-07-10] MEDS ORDERED: VANCOMYCIN 1.25 GM/250 ML BAG 1.25 GM in Premix Bag 1 BAG IVPB SCH (07:30)
[2022-07-10 07:51] LABS: BUN (Urea Nitrogen) 23 mg/dL (9.8-20.1); Calc. Creatinine Clearance 33 mL/min (70-130); Calcium 9.5 mg/dL (7.8-10.44); Carbon Dioxide Less than 8 mmol/L (23-31); Chloride 107 mmol/L (98-107); Estimated GFR 30; Glucose 390 mg/dL (80-115); Potassium 4.4 mmol/L (3.5-5.1); Sodium 142 mmol/L (136-145)
[2022-07-10 07:57] LABS: Hemoglobin 11.1 g/dL (12.0-16.0); Mean Corpuscular HGB CONC 32.9 g/dL (32.0-36.0); Mean Corpuscular Hemoglobin 30.6 pg (27.0-31.0); Mean Platelet Volume 7.2 fL (7.4-10.4); Platelet Count 245 10x3/uL (130-400); RBC Distribution Width 12.3 % (11.5-14.5); Red Blood Cell (RBC) Count 3.64 mill/uL (4.20-5.40)
[2022-07-10 07:59] LABS: Lactic Acid 3.9 mmol/L (0.5-2.2)
[2022-07-10 08:02] LABS: Anion Gap 23 mmol/L (10-20); BUN (Urea Nitrogen) 20 mg/dL (9.8-20.1); Calc. Creatinine Clearance 40 mL/min (70-130); Calcium 9.2 mg/dL (7.8-10.44); Carbon Dioxide 17 mmol/L (23-31); Chloride 109 mmol/L (98-107); Estimated GFR 39; Glucose 190 mg/dL (80-115); Potassium 4.2 mmol/L (3.5-5.1); Sodium 145 mmol/L (136-145)
[2022-07-10 08:23] LABS: Magnesium 2.5 mg/dL (1.6-2.6); Phosphorus 4.5 mg/dL (2.3-4.7)
[2022-07-10 10:27] LABS: #Lymphocytes 1.4 thou/uL (1.20-3.40); #Monocytes 1.2 thou/uL (0.11-0.59); #Neutrophils 17.4 thou/uL (1.40-6.50); %Basophils 0.1 % (0.0-1.0); %Eosinophils 0.1 % (0.0-10.0); %Lymphocytes 7.2 % (21.0-51.0); %Monocytes 5.9 % (0.0-10.0); %Neutrophils 86.7 % (42.0-75.0)
[2022-07-10] MEDS: Heparin 5,000 UNITS/ML VIAL SC SCH ×3 (13:28→20:37)
[2022-07-10 13:34] LABS: Lactic Acid 3.4 mmol/L (0.5-2.2)
[2022-07-10 13:46] LABS: Anion Gap 16 mmol/L (10-20); BUN (Urea Nitrogen) 16 mg/dL (9.8-20.1); Calc. Creatinine Clearance 50 mL/min (70-130); Calcium 8.4 mg/dL (7.8-10.44); Carbon Dioxide 22 mmol/L (23-31); Chloride 105 mmol/L (98-107); Estimated GFR 50; Glucose 184 mg/dL (80-115); Magnesium 1.9 mg/dL (1.6-2.6); Phosphorus 2.1 mg/dL (2.3-4.7); Potassium 4.1 mmol/L (3.5-5.1); Sodium 139 mmol/L (136-145)
[2022-07-10] MEDS ORDERED: Magnesium 2 GM/50 ML(in water) 2 GM in Premix Bag 1 BAG IVPB SCH (14:30)
[2022-07-10 18:03] LABS: Anion Gap 14 mmol/L (10-20); BUN (Urea Nitrogen) 14 mg/dL (9.8-20.1); Calc. Creatinine Clearance 51 mL/min (70-130); Calcium 8.3 mg/dL (7.8-10.44); Carbon Dioxide 24 mmol/L (23-31); Chloride 104 mmol/L (98-107); Estimated GFR 51; Glucose 150 mg/dL (80-115); Potassium 3.7 mmol/L (3.5-5.1); Sodium 138 mmol/L (136-145)
[2022-07-10 22:01] LABS: Anion Gap 14 mmol/L (10-20); BUN (Urea Nitrogen) 11 mg/dL (9.8-20.1); Calc. Creatinine Clearance 50 mL/min (70-130); Calcium 8.2 mg/dL (7.8-10.44); Carbon Dioxide 23 mmol/L (23-31); Chloride 105 mmol/L (98-107); Estimated GFR 49; Glucose 223 mg/dL (80-115); Potassium 3.7 mmol/L (3.5-5.1); Sodium 138 mmol/L (136-145)
[2022-07-10] MEDS ORDERED: Dextrose 50% Abboject 50 ML SYRINGE SLOW IVP PRN (23:02)
[2022-07-10] MEDS ORDERED: HumaLOG 300 UNITS/3 ML VIAL SC PRN (23:02)
[2022-07-10] MEDS ORDERED: Dextrose 5% in Water 1,000 ML IV PRN (23:02)
[2022-07-10] MEDS ORDERED: Insulin Glargine 30 UNITS/0.3 ML VIAL SC SCH (23:15)
[2022-07-11 04:31] LABS: #Eosinphils 0.1 thou/uL (0.0-0.7); #Lymphocytes 2.5 thou/uL (1.20-3.40); #Monocytes 0.7 thou/uL (0.11-0.59); #Neutrophils 12.1 thou/uL (1.40-6.50); %Basophils 0.2 % (0.0-1.0); %Eosinophils 0.3 % (0.0-10.0); %Monocytes 4.3 % (0.0-10.0); %Neutrophils 79.1 % (42.0-75.0); Anion Gap 11 mmol/L (10-20); BUN (Urea Nitrogen) 8 mg/dL (9.8-20.1); Calc. Creatinine Clearance 64 mL/min (70-130); Calcium 8.2 mg/dL (7.8-10.44); Carbon Dioxide 24 mmol/L (23-31); Chloride 108 mmol/L (98-107); Estimated GFR 67; Glucose 223 mg/dL (80-115); Hemoglobin 10.9 g/dL (12.0-16.0); Mean Corpuscular HGB CONC 33.3 g/dL (32.0-36.0); Mean Corpuscular Hemoglobin 30.9 pg (27.0-31.0); Mean Platelet Volume 7.8 fL (7.4-10.4); Platelet Count 240 10x3/uL (130-400); Potassium 3.7 mmol/L (3.5-5.1); Red Blood Cell (RBC) Count 3.53 mill/uL (4.20-5.40); Sodium 139 mmol/L (136-145); White Blood Cell (WBC) Count 15.3 10x3/uL (4.8-10.8)
[2022-07-11] MEDS ORDERED: Cefepime 1 GM in Sodium Chloride 0.9% 100 ML IVPB SCH (08:00)
[2022-07-11] MEDS: HumaLOG 300 UNITS/3 ML VIAL SC PRN ×3 (08:29→17:05)
[2022-07-11] MEDS: Heparin 5,000 UNITS/ML VIAL SC SCH ×3 (08:31→20:15)
[2022-07-11] MEDS: Insulin Regular 300 UNITS/3 ML VIAL SC SCH (17:05)
[2022-07-11] MEDS ORDERED: Insulin Glargine 30 UNITS/0.3 ML VIAL SC SCH ×2 (21:00)
[2022-07-12 06:51] LABS: Band 3 % (5-11); Hemoglobin 12.5 g/dL (12.0-16.0); Lymphocytes 52 % (21-51); MDiff Complete? YES; Mean Corpuscular HGB CONC 32.7 g/dL (32.0-36.0); Mean Corpuscular Hemoglobin 30.7 pg (27.0-31.0); Mean Corpuscular Volume 93.8 fl (78.0-98.0); Mean Platelet Volume 8.5 fL (7.4-10.4); Neutrophil 44 % (42-75); Platelet Count 195 10x3/uL (130-400); Platelet Morphology Comment Appears Adequate; RBC Distribution Width 13.1 % (11.5-14.5); RBC Morphology Normal; Reactive Lymphocytes 1 % (0-10); Red Blood Cell (RBC) Count 4.08 mill/uL (4.20-5.40); White Blood Cell (WBC) Count 7.7 10x3/uL (4.8-10.8)
[2022-07-12] MEDS ORDERED: Nicotine 21 MG PATCH TD SCH (08:00)
[2022-07-12 08:03] LABS: Hemoglobin A1c 4.5 % (4.0-6.0)
[2022-07-12] MEDS: Insulin Regular 300 UNITS/3 ML VIAL SC SCH ×2 (08:14→11:19)
[2022-07-12] MEDS: Heparin 5,000 UNITS/ML VIAL SC SCH (08:15)
[2022-07-12 08:49] LABS: Anion Gap 14 mmol/L (10-20); BUN (Urea Nitrogen) 7 mg/dL (9.8-20.1); Calc. Creatinine Clearance 77 mL/min (70-130); Calcium 9.3 mg/dL (7.8-10.44); Carbon Dioxide 29 mmol/L (23-31); Chloride 100 mmol/L (98-107); Estimated GFR 83; Glucose 181 mg/dL (80-115); Phosphorus 2.4 mg/dL (2.3-4.7); Potassium 3.9 mmol/L (3.5-5.1); Sodium 139 mmol/L (136-145)
[2022-07-12] MEDS ORDERED: Lisinopril 5 MG TAB PO SCH (09:00)
[2022-07-12] MEDS ORDERED: Magnesium 2 GM/50 ML(in water) 2 GM in Premix Bag 1 BAG IVPB SCH (09:00)
[2022-07-12] MEDS ORDERED: hydrOXYzine 25 MG TAB PO SCH (09:00)
[2022-07-12] MEDS ORDERED: Clopidogrel Bisulfate 75 MG TAB PO SCH (09:00)
[2022-07-12] MEDS ORDERED: Non-Formulary Item 1 EACH (Carvedilol [Carvedilol] 12.5 MG Tablet) PO SCH (09:00)
[2022-07-12] MEDS ORDERED: Carvedilol 6.25 MG TAB PO SCH (09:00)
[2022-07-12] MEDS ORDERED: Bupropion 150 MG XL TAB PO SCH (09:00)
[2022-07-12] MEDS ORDERED: Citalopram 20 MG TAB PO SCH (09:00)
[2022-07-12 11:45] VITALS: BP 126/82; TEMP 98.7
[2022-07-12] MEDS ORDERED: traZODone HCl 50 MG TAB PO SCH (21:00)
[2022-07-12] MEDS ORDERED: Atorvastatin Calcium 40 MG TAB PO SCH (21:00)
== END 2022-07-12 11:33 | disposition home or self-care (01) | DRG 637 ==
LOC: ERS 21:39 → CCU 23:31 → T4-A 07-11 09:13
PROVIDERS: ADMIT Internal Medicine; ATTEND Internal Medicine
DX: E10.11 Type 1 diabetes mellitus with ketoacidosis with coma (principal); G93.41 Metabolic encephalopathy; N17.9 Acute kidney failure, unspecified; I25.10 Atherosclerotic heart disease of native coronary artery without angina pectoris; E78.00 Pure hypercholesterolemia, unspecified; Z20.822 Contact with and (suspected) exposure to COVID-19; F32.A Depression, unspecified; E87.5 Hyperkalemia; E10.22 Type 1 diabetes mellitus with diabetic chronic kidney disease; D72.829 Elevated white blood cell count, unspecified; N18.30 Chronic kidney disease, stage 3 unspecified; F17.210 Nicotine dependence, cigarettes, uncomplicated; Z90.49 Acquired absence of other specified parts of digestive tract; Z90.710 Acquired absence of both cervix and uterus; Z88.0 Allergy status to penicillin; Z79.4 Long term (current) use of insulin; Z79.899 Other long term (current) drug therapy; Z91.14 Patient's other noncompliance with medication regimen
CPT/HCPCS: 36415; 36416; 70450; 71045; 80048; 80053; 81003; 82010; 82550; 82805; 83036; 83605; 83690; 83735; 84100; 85025; 87040; 93005; 96365; 96366; 96374; 96375; A4217; J1644; J1815; J3475; J3480; J7042; U0002

== ENCOUNTER 2022-08-07 14:45 | Inpatient (IN) | payer MEDICARE, OTHER ==
[2022-08-07 16:26] LABS: #Basophils 0.1 thou/uL (0.0-0.2); #Lymphocytes 1.6 thou/uL (1.20-3.40); #Monocytes 0.6 thou/uL (0.11-0.59); #Neutrophils 4.6 thou/uL (1.40-6.50); %Basophils 1.1 % (0.0-1.0); %Eosinophils 0.7 % (0.0-10.0); %Lymphocytes 22.9 % (21.0-51.0); %Monocytes 8.1 % (0.0-10.0); %Neutrophils 67.2 % (42.0-75.0); Hemoglobin 12.9 g/dL (12.0-16.0); Mean Corpuscular HGB CONC 33.5 g/dL (32.0-36.0); Mean Corpuscular Hemoglobin 32.3 pg (27.0-31.0); Mean Corpuscular Volume 96.5 fl (78.0-98.0); Mean Platelet Volume 8.1 fL (7.4-10.4); Platelet Count 228 10x3/uL (130-400); RBC Distribution Width 14.5 % (11.5-14.5); White Blood Cell (WBC) Count 6.9 10x3/uL (4.8-10.8)
[2022-08-07 16:45] LABS: ALT (SGPT) 26 U/L (8-55); AST (SGOT) 27 U/L (5-34); Albumin 4.3 g/dL (3.4-4.8); Alkaline Phosphatase 126 U/L (40-110); Anion Gap 21 mmol/L (10-20); BUN (Urea Nitrogen) 20 mg/dL (9.8-20.1); Bilirubin, Total 0.8 mg/dL (0.2-1.2); Calc. Creatinine Clearance 0 mL/min (70-130); Calcium 10.1 mg/dL (7.8-10.44); Carbon Dioxide 20 mmol/L (23-31); Chloride 99 mmol/L (98-107); Estimated GFR 44; Globulin 2.9 g/dL (2.4-3.5); Glucose 193 mg/dL (80-115); Potassium 5.2 mmol/L (3.5-5.1); Protein, Total 7.2 g/dL (5.8-8.1); Sodium 135 mmol/L (136-145)
[2022-08-07 18:28] LABS: Bilirubin Negative (Negative); Blood, Urine Negative (Negative); Clarity Clear (Clear); Glucose, Urine (Dipstick) Greater than 1000 mg/dL (Negative); Ketone, Urine 60 mg/dL (Negative); Leukocyte Negative Leu/uL (Negative); Nitrite Negative (Negative); Protein, Urine (Dipstick) Negative (Neg-Trace); Specific Gravity, Urine 1.009 (1.002-1.036); Urobilinogen Normal mg/dL (Less than 2)
[2022-08-07 19:56] LABS: Lactic Acid 1.4 mmol/L (0.5-2.2)
[2022-08-07] MEDS ORDERED: Sodium Chloride 0.9% 1,000 ML IV SCH (20:00)
[2022-08-07] MEDS ORDERED: Dextrose 50% Abboject 50 ML SYRINGE SLOW IVP PRN (20:05)
[2022-08-07] MEDS ORDERED: Dextrose 5% in Water 1,000 ML IV PRN (20:05)
[2022-08-07] MEDS ORDERED: HumaLOG 300 UNITS/3 ML VIAL SC PRN (20:05)
[2022-08-07] MEDS ORDERED: traZODone HCl 50 MG TAB PO SCH (21:00)
[2022-08-07] MEDS ORDERED: Insulin Glargine 30 UNITS/0.3 ML VIAL SC SCH (21:00)
[2022-08-08] MEDS: Atorvastatin Calcium 40 MG TAB PO SCH ×2 (00:41→20:47)
[2022-08-08] MEDS: Carvedilol 6.25 MG TAB PO SCH ×3 (00:41→20:47)
[2022-08-08] MEDS: Heparin 5,000 UNITS/ML VIAL SC SCH ×4 (00:42→20:44)
[2022-08-08] MEDS: Nicotine 21 MG PATCH TD SCH ×2 (00:42→20:50)
[2022-08-08] MEDS ORDERED: Ondansetron PF 4 MG/2 ML Vial IVP PRN (04:01)
[2022-08-08 07:19] LABS: Critical Call Chemistry 2NO.CLM10718; Glucose 718 mg/dL (80-115)
[2022-08-08] MEDS ORDERED: Insulin Regular 300 UNITS/3 ML VIAL IVP SCH (09:00)
[2022-08-08 09:09] LABS: BUN (Urea Nitrogen) 21 mg/dL (9.8-20.1); Calc. Creatinine Clearance 32 mL/min (70-130); Calcium 9.8 mg/dL (7.8-10.44); Chloride 99 mmol/L (98-107); Estimated GFR 30; Sodium 134 mmol/L (136-145)
[2022-08-08 09:59] LABS: BUN (Urea Nitrogen) 24 mg/dL (9.8-20.1); Calc. Creatinine Clearance 31 mL/min (70-130); Calcium 9.7 mg/dL (7.8-10.44); Chloride 100 mmol/L (98-107); Estimated GFR 29; Sodium 132 mmol/L (136-145)
[2022-08-08 10:01] LABS: Carbon Dioxide Less than 8 mmol/L (23-31); Glucose 713 mg/dL (80-115); Potassium 6.8 mmol/L (3.5-5.1)
[2022-08-08 10:04] LABS: Carbon Dioxide Less than 8 mmol/L (23-31); Glucose 778 mg/dL (80-115); Potassium 7.3 mmol/L (3.5-5.1)
[2022-08-08] MEDS ORDERED: NS 0.9% w/ 20 MEQ KCL 1,000 ML IV PRN ×2 (10:39)
[2022-08-08] MEDS ORDERED: Electrolyte Replacement Protocol 1 EACH IVPB ONE (10:39)
[2022-08-08] MEDS ORDERED: D5 1/2 NS w/20 mEq KCL 1,000 ML IV PRN (10:39)
[2022-08-08] MEDS ORDERED: Dextrose 5 %-0.45 % NaCl 1,000 ML IV PRN (10:39)
[2022-08-08] MEDS ORDERED: Sodium Chloride 0.9% 1,000 ML IV PRN ×4 (10:39)
[2022-08-08] MEDS ORDERED: Sodium Bicarb 50 MEQ/50 ML Abboject 8.4% SYRINGE IVP SCH (10:45)
[2022-08-08] MEDS ORDERED: CALCIUM GLUC 1 GM/NS 50 ML 1 GM in Premix Bag 1 BAG IVPB SCH (10:45)
[2022-08-08] MEDS ORDERED: Electrolyte Replacement Protocol FS PRN (11:00)
[2022-08-08 11:22] LABS: BUN (Urea Nitrogen) 25 mg/dL (9.8-20.1); Calc. Creatinine Clearance 29 mL/min (70-130); Calcium 9.6 mg/dL (7.8-10.44); Chloride 102 mmol/L (98-107); Estimated GFR 27; Phosphorus 6.9 mg/dL (2.3-4.7); Sodium 134 mmol/L (136-145)
[2022-08-08 11:25] LABS: Carbon Dioxide Less than 8 mmol/L (23-31); Glucose 692 mg/dL (80-115); Potassium 6.3 mmol/L (3.5-5.1)
[2022-08-08 11:26] LABS: Base Excess -28.3 mEq/L (-2.0 to +3.0); Chloride (VBG) 104 mmol/L (98-106); Hemoglobin (Hb) 12.6 g/dL (11.7-16.1); Potassium (VBG) 5.88 mmol/L (3.70-5.30)
[2022-08-08 11:28] LABS: Actual Bicarbonate (HCO3v) 4 mEq/L (22-28); pH (venous) 6.88 (7.32-7.43)
[2022-08-08] MEDS ORDERED: LOKELMA 10 GM PACKET PO SCH (11:30)
[2022-08-08] MEDS: Citalopram 20 MG TAB PO SCH (11:42)
[2022-08-08] MEDS: Bupropion 150 MG XL TAB PO SCH (11:42)
[2022-08-08] MEDS ORDERED: Sodium Bicarb 50 MEQ/50 ML VIAL IVP SCH (11:45)
[2022-08-08] MEDS: HUMULIN R 100 UNITS in Sodium Chloride 0.9% 100 ML IVPB SCH (12:35)
[2022-08-08 14:31] LABS: Calcium, Ionized (venous) 1.26 mmol/L (1.16-1.32); Chloride (VBG) 110 mmol/L (98-106); Hemoglobin (Hb) 12.7 g/dL (11.7-16.1); Potassium (VBG) 4.75 mmol/L (3.70-5.30); Sodium 143.5 mmol/L (133-146)
[2022-08-08 14:33] LABS: pH (venous) 7.11 (7.32-7.43)
[2022-08-08 14:34] LABS: Actual Bicarbonate (HCO3v) 8 mEq/L (22-28)
[2022-08-08 16:26] LABS: Anion Gap 28 mmol/L (10-20); BUN (Urea Nitrogen) 23 mg/dL (9.8-20.1); Calc. Creatinine Clearance 31 mL/min (70-130); Calcium 9.3 mg/dL (7.8-10.44); Carbon Dioxide 10 mmol/L (23-31); Chloride 110 mmol/L (98-107); Estimated GFR 29; Glucose 336 mg/dL (80-115); Potassium 4.6 mmol/L (3.5-5.1); Sodium 143 mmol/L (136-145)
[2022-08-08] MEDS ORDERED: Dextrose 5%-Lactated Ringers 1,000 ML IV PRN (16:54)
[2022-08-08] MEDS: D5 1/2 NS w/20 mEq KCL 1,000 ML IV PRN ×2 (17:59→21:27)
[2022-08-08 19:05] LABS: Anion Gap 20 mmol/L (10-20); BUN (Urea Nitrogen) 20 mg/dL (9.8-20.1); Calc. Creatinine Clearance 36 mL/min (70-130); Calcium 8.7 mg/dL (7.8-10.44); Carbon Dioxide 13 mmol/L (23-31); Chloride 115 mmol/L (98-107); Estimated GFR 35; Glucose 194 mg/dL (80-115); Potassium 4.2 mmol/L (3.5-5.1); Sodium 144 mmol/L (136-145)
[2022-08-09] MEDS: D5 1/2 NS w/20 mEq KCL 1,000 ML IV PRN ×3 (01:37→09:29)
[2022-08-09] MEDS: HUMULIN R 100 UNITS in Sodium Chloride 0.9% 100 ML IVPB SCH (05:34)
[2022-08-09 08:16] LABS: Actual Bicarbonate (HCO3v) 21 mEq/L (22-28); Calcium, Ionized (venous) 1.11 mmol/L (1.16-1.32); Chloride (VBG) 111 mmol/L (98-106); Hemoglobin (Hb) 12.2 g/dL (11.7-16.1); Sodium 137.6 mmol/L (133-146); pH (venous) 7.38 (7.32-7.43)
[2022-08-09 08:40] LABS: Anion Gap 12 mmol/L (10-20); BUN (Urea Nitrogen) 12 mg/dL (9.8-20.1); Calc. Creatinine Clearance 50 mL/min (70-130); Calcium 8.4 mg/dL (7.8-10.44); Carbon Dioxide 19 mmol/L (23-31); Chloride 111 mmol/L (98-107); Estimated GFR 51; Glucose 253 mg/dL (80-115); Potassium 4.4 mmol/L (3.5-5.1); Sodium 138 mmol/L (136-145)
[2022-08-09] MEDS: Heparin 5,000 UNITS/ML VIAL SC SCH ×3 (09:28→22:56)
[2022-08-09] MEDS: Bupropion 150 MG XL TAB PO SCH (09:28)
[2022-08-09] MEDS: Carvedilol 6.25 MG TAB PO SCH ×2 (09:28→22:56)
[2022-08-09] MEDS: Citalopram 20 MG TAB PO SCH (09:29)
[2022-08-09 10:45] VITALS: BMI 25.1
[2022-08-09] MEDS ORDERED: Dextrose 50% Abboject 50 ML SYRINGE SLOW IVP PRN (12:29)
[2022-08-09] MEDS ORDERED: Dextrose 5% in Water 1,000 ML IV PRN (12:29)
[2022-08-09] MEDS ORDERED: HumaLOG 300 UNITS/3 ML VIAL SC SCH ×2 (12:45→17:00)
[2022-08-09] MEDS ORDERED: Insulin Glargine 30 UNITS/0.3 ML VIAL SC SCH ×2 (13:45→21:00)
[2022-08-09 16:14] LABS: Magnesium 1.7 mg/dL (1.6-2.6); Phosphorus 1.7 mg/dL (2.3-4.7)
[2022-08-09] MEDS: HumaLOG 300 UNITS/3 ML VIAL SC SCH (17:14)
[2022-08-09] MEDS: HumaLOG 300 UNITS/3 ML VIAL SC PRN (17:15)
[2022-08-09] MEDS: Atorvastatin Calcium 40 MG TAB PO SCH (22:56)
[2022-08-09] MEDS: Nicotine 21 MG PATCH TD SCH (22:56)
[2022-08-10 04:36] LABS: #Lymphocytes 2.1 thou/uL (1.20-3.40); #Monocytes 0.6 thou/uL (0.11-0.59); #Neutrophils 8.7 thou/uL (1.40-6.50); %Basophils 0.1 % (0.0-1.0); %Eosinophils 0.1 % (0.0-10.0); %Neutrophils 76.7 % (42.0-75.0); Hemoglobin 11.6 g/dL (12.0-16.0); Mean Corpuscular HGB CONC 32.5 g/dL (32.0-36.0); Mean Corpuscular Hemoglobin 31.7 pg (27.0-31.0); Mean Corpuscular Volume 97.4 fl (78.0-98.0); Mean Platelet Volume 8.1 fL (7.4-10.4); Platelet Count 178 10x3/uL (130-400); RBC Distribution Width 15.1 % (11.5-14.5); Red Blood Cell (RBC) Count 3.66 mill/uL (4.20-5.40); White Blood Cell (WBC) Count 11.4 10x3/uL (4.8-10.8)
[2022-08-10 04:53] LABS: Anion Gap 13 mmol/L (10-20); BUN (Urea Nitrogen) 7 mg/dL (9.8-20.1); Calc. Creatinine Clearance 75 mL/min (70-130); Calcium 8.9 mg/dL (7.8-10.44); Carbon Dioxide 22 mmol/L (23-31); Chloride 107 mmol/L (98-107); Estimated GFR 82; Glucose 241 mg/dL (80-115); Potassium 3.7 mmol/L (3.5-5.1); Sodium 138 mmol/L (136-145)
[2022-08-10] MEDS ORDERED: HumaLOG 300 UNITS/3 ML VIAL SC PRN (05:30)
[2022-08-10] MEDS: HumaLOG 300 UNITS/3 ML VIAL SC PRN ×2 (06:15→12:40)
[2022-08-10 07:11] LABS: Magnesium 1.7 mg/dL (1.6-2.6); Phosphorus 1.8 mg/dL (2.3-4.7)
[2022-08-10] MEDS ORDERED: Magnesium 2 GM/50 ML(in water) 2 GM in Premix Bag 1 BAG IVPB SCH (08:00)
[2022-08-10] MEDS: HumaLOG 300 UNITS/3 ML VIAL SC SCH ×2 (09:53→12:48)
[2022-08-10] MEDS: PHOS-NAK 1 PKT PACK PO SCH ×2 (09:54→13:08)
[2022-08-10] MEDS: Bupropion 150 MG XL TAB PO SCH (09:54)
[2022-08-10] MEDS: Citalopram 20 MG TAB PO SCH (09:54)
[2022-08-10] MEDS: Carvedilol 6.25 MG TAB PO SCH ×2 (09:54→21:27)
[2022-08-10] MEDS: Heparin 5,000 UNITS/ML VIAL SC SCH ×3 (09:54→21:35)
[2022-08-10] MEDS ORDERED: Potassium Phosphate 30 MMOL in Sodium Chloride 0.9% 500 ML IVPB SCH (10:00)
[2022-08-10] MEDS ORDERED: HumaLOG 300 UNITS/3 ML VIAL SC SCH (13:30)
[2022-08-10] MEDS ORDERED: Insulin Glargine 30 UNITS/0.3 ML VIAL SC SCH (21:00)
[2022-08-10] MEDS: Atorvastatin Calcium 40 MG TAB PO SCH (21:27)
[2022-08-10] MEDS: Insulin Glargine 30 UNITS/0.3 ML VIAL SC SCH (21:32)
[2022-08-10] MEDS: Nicotine 21 MG PATCH TD SCH ×2 (21:37→21:50)
[2022-08-11 04:46] LABS: #Lymphocytes 1.8 thou/uL (1.20-3.40); #Monocytes 0.4 thou/uL (0.11-0.59); #Neutrophils 4.7 thou/uL (1.40-6.50); %Basophils 0.6 % (0.0-1.0); %Eosinophils 0.6 % (0.0-10.0); %Lymphocytes 25.6 % (21.0-51.0); %Monocytes 6.3 % (0.0-10.0); %Neutrophils 66.9 % (42.0-75.0); Hemoglobin 11.9 g/dL (12.0-16.0); Mean Corpuscular HGB CONC 32.6 g/dL (32.0-36.0); Mean Corpuscular Hemoglobin 31.5 pg (27.0-31.0); Mean Corpuscular Volume 96.8 fl (78.0-98.0); Mean Platelet Volume 7.7 fL (7.4-10.4); Platelet Count 159 10x3/uL (130-400); RBC Distribution Width 14.7 % (11.5-14.5); Red Blood Cell (RBC) Count 3.77 mill/uL (4.20-5.40); White Blood Cell (WBC) Count 7.1 10x3/uL (4.8-10.8)
[2022-08-11 05:01] LABS: Anion Gap 13 mmol/L (10-20); BUN (Urea Nitrogen) 7 mg/dL (9.8-20.1); Calc. Creatinine Clearance 77 mL/min (70-130); Calcium 8.9 mg/dL (7.8-10.44); Carbon Dioxide 26 mmol/L (23-31); Chloride 102 mmol/L (98-107); Estimated GFR 84; Glucose 180 mg/dL (80-115); Potassium 3.6 mmol/L (3.5-5.1); Sodium 137 mmol/L (136-145)
[2022-08-11] MEDS ORDERED: Non-Formulary Item 1 EACH (Linagliptin [Tradjenta] 5 MG Tablet) PO SCH (09:00)
[2022-08-11] MEDS: Heparin 5,000 UNITS/ML VIAL SC SCH ×3 (09:12→21:29)
[2022-08-11] MEDS: Citalopram 20 MG TAB PO SCH (09:14)
[2022-08-11] MEDS: Carvedilol 6.25 MG TAB PO SCH ×2 (09:14→21:28)
[2022-08-11] MEDS: Bupropion 150 MG XL TAB PO SCH (09:14)
[2022-08-11] MEDS: HumaLOG 300 UNITS/3 ML VIAL SC SCH ×2 (12:12→16:17)
[2022-08-11] MEDS: HumaLOG 300 UNITS/3 ML VIAL SC PRN (18:12)
[2022-08-11] MEDS: Atorvastatin Calcium 40 MG TAB PO SCH (21:28)
[2022-08-11] MEDS: Insulin Glargine 30 UNITS/0.3 ML VIAL SC SCH (21:30)
[2022-08-11] MEDS: Nicotine 21 MG PATCH TD SCH (21:33)
[2022-08-12 05:10] LABS: #Eosinphils 0.1 thou/uL (0.0-0.7); #Lymphocytes 0.5 thou/uL (1.20-3.40); #Monocytes 0.3 thou/uL (0.11-0.59); #Neutrophils 4.4 thou/uL (1.40-6.50); %Basophils 0.1 % (0.0-1.0); %Eosinophils 1.1 % (0.0-10.0); %Lymphocytes 9.4 % (21.0-51.0); %Monocytes 6.2 % (0.0-10.0); %Neutrophils 83.1 % (42.0-75.0); Hemoglobin 11.5 g/dL (12.0-16.0); Mean Corpuscular HGB CONC 32.8 g/dL (32.0-36.0); Mean Corpuscular Hemoglobin 31.5 pg (27.0-31.0); Mean Platelet Volume 8.1 fL (7.4-10.4); Platelet Count 160 10x3/uL (130-400); RBC Distribution Width 14.3 % (11.5-14.5); Red Blood Cell (RBC) Count 3.64 mill/uL (4.20-5.40); White Blood Cell (WBC) Count 5.3 10x3/uL (4.8-10.8)
[2022-08-12 05:34] LABS: Anion Gap 11 mmol/L (10-20); BUN (Urea Nitrogen) 8 mg/dL (9.8-20.1); Calc. Creatinine Clearance 95 mL/min (70-130); Calcium 9.2 mg/dL (7.8-10.44); Carbon Dioxide 28 mmol/L (23-31); Chloride 101 mmol/L (98-107); Estimated GFR 97; Potassium 3.4 mmol/L (3.5-5.1); Sodium 137 mmol/L (136-145)
[2022-08-12 05:53] LABS: Glucose 55 mg/dL (80-115)
[2022-08-12] MEDS: Carvedilol 6.25 MG TAB PO SCH (09:10)
[2022-08-12] MEDS: Bupropion 150 MG XL TAB PO SCH (09:11)
[2022-08-12] MEDS: Heparin 5,000 UNITS/ML VIAL SC SCH (09:11)
[2022-08-12] MEDS: Citalopram 20 MG TAB PO SCH (09:11)
[2022-08-12] MEDS: HumaLOG 300 UNITS/3 ML VIAL SC SCH ×2 (09:14→12:18)
[2022-08-12] MEDS ORDERED: Potassium Chloride 20 MEQ TAB PO SCH (10:00)
[2022-08-12 11:59] VITALS: BP 134/72; TEMP 99
== END 2022-08-12 15:00 | disposition home or self-care (01) | DRG 637 ==
LOC: ERS 14:45 → 2NO 23:27 → OBSVTOIN 08-08 12:18 → IMCU/EMU 08-08 16:22 → 2NO 08-09 20:20
PROVIDERS: ADMIT Hospitalist; ATTEND Hospitalist
DX: E10.10 Type 1 diabetes mellitus with ketoacidosis without coma (principal); G93.41 Metabolic encephalopathy; N17.9 Acute kidney failure, unspecified; Z20.822 Contact with and (suspected) exposure to COVID-19; F17.210 Nicotine dependence, cigarettes, uncomplicated; I10 Essential (primary) hypertension; I25.10 Atherosclerotic heart disease of native coronary artery without angina pectoris; Z60.2 Problems related to living alone; E86.0 Dehydration; E86.9 Volume depletion, unspecified; E87.5 Hyperkalemia; E83.39 Other disorders of phosphorus metabolism; G47.00 Insomnia, unspecified; F39 Unspecified mood [affective] disorder; E78.5 Hyperlipidemia, unspecified; Z95.5 Presence of coronary angioplasty implant and graft; Z88.0 Allergy status to penicillin; Z79.899 Other long term (current) drug therapy; Z79.02 Long term (current) use of antithrombotics/antiplatelets; Z79.4 Long term (current) use of insulin
CPT/HCPCS: 36415; 36416; 70450; 71045; 80048; 80053; 81003; 82010; 82805; 82947; 83605; 83735; 84100; 84484; 85025; 93005; 93010; 96360; 96361; G0378; J0610; J1644; J1815; J2405; J3475; J3480; J3490; J7030; J7050; U0003; U0005

== ENCOUNTER 2022-09-09 22:22 | Observation (INO) | payer OTHER ==
[2022-09-09 23:08] LABS: #Eosinphils 0.1 thou/uL (0.0-0.7); #Lymphocytes 1.5 thou/uL (1.20-3.40); #Monocytes 0.5 thou/uL (0.11-0.59); #Neutrophils 5.6 thou/uL (1.40-6.50); %Basophils 0.6 % (0.0-1.0); %Eosinophils 1.3 % (0.0-10.0); %Lymphocytes 19.4 % (21.0-51.0); %Monocytes 5.9 % (0.0-10.0); %Neutrophils 72.7 % (42.0-75.0); Mean Corpuscular HGB CONC 31.9 g/dL (32.0-36.0); Mean Corpuscular Hemoglobin 31.3 pg (27.0-31.0); Mean Corpuscular Volume 97.9 fl (78.0-98.0); Mean Platelet Volume 7.9 fL (7.4-10.4); Platelet Count 194 10x3/uL (130-400); RBC Distribution Width 13.8 % (11.5-14.5); Red Blood Cell (RBC) Count 4.16 mill/uL (4.20-5.40); White Blood Cell (WBC) Count 7.7 10x3/uL (4.8-10.8)
[2022-09-09 23:22] LABS: INR-International Normal Ratio 0.9; PTT 28.2 sec (22.9-36.1); Prothrombin Time 12.7 sec (12.0-14.7)
[2022-09-09 23:28] LABS: ALT (SGPT) 28 U/L (8-55); AST (SGOT) 33 U/L (5-34); Albumin 4.3 g/dL (3.4-4.8); Alkaline Phosphatase 83 U/L (40-110); Anion Gap 12 mmol/L (10-20); BUN (Urea Nitrogen) 17 mg/dL (9.8-20.1); Bilirubin, Total 0.3 mg/dL (0.2-1.2); Calc. Creatinine Clearance 0 mL/min (70-130); Calcium 9.5 mg/dL (7.8-10.44); Carbon Dioxide 30 mmol/L (23-31); Chloride 104 mmol/L (98-107); Estimated GFR 84; Globulin 2.6 g/dL (2.4-3.5); Potassium 4.2 mmol/L (3.5-5.1); Protein, Total 6.9 g/dL (5.8-8.1); Sodium 142 mmol/L (136-145)
[2022-09-09 23:37] LABS: Glucose 38 mg/dL (80-115)
[2022-09-10 01:50] LABS: Bacteria/HPF None Seen HPF (None Seen); Bilirubin Negative (Negative); Blood, Urine Negative (Negative); Clarity Clear (Clear); Glucose, Urine (Dipstick) 70 mg/dL (Negative); Ketone, Urine Negative (Negative); Leukocyte 75 Leu/uL (Negative); Nitrite Negative (Negative); Protein, Urine (Dipstick) Negative (Neg-Trace); RBC/HPF 0-3 HPF (0-3); Renal Epithelial 0-3 HPF (None Seen); Specific Gravity, Urine 1.012 (1.002-1.036); Squamous Epithelial 0-3 HPF (0-3); Urobilinogen Normal mg/dL (Less than 2)
[2022-09-10 02:26] VITALS: BMI 25.9
[2022-09-10] MEDS ORDERED: Acetaminophen 325 MG TAB PO PRN (04:58)
[2022-09-10] MEDS ORDERED: Dextrose 5% in Water 1,000 ML IV PRN (04:58)
[2022-09-10] MEDS ORDERED: Senokot S 8.6-50 MG TAB PO PRN (04:58)
[2022-09-10] MEDS ORDERED: Dextrose 50% Abboject 50 ML SYRINGE SLOW IVP PRN (04:58)
[2022-09-10 05:08] LABS: SARS-CoV-2 NAA Rapid Test DETECTED (NotDetected)
[2022-09-10] MEDS ORDERED: HumaLOG 300 UNITS/3 ML VIAL ONE (08:43)
[2022-09-10] MEDS: HumaLOG 300 UNITS/3 ML VIAL SC PRN ×2 (08:47→17:07)
[2022-09-10] MEDS ORDERED: Famotidine 20 MG TAB PO SCH (09:00)
[2022-09-10] MEDS ORDERED: Famotidine 20 MG TAB ONE (09:43)
[2022-09-10 18:13] VITALS: BP 152/74; TEMP 98.5
== END 2022-09-10 18:12 | disposition home or self-care (01) ==
LOC: ERS 22:22 → ERHOLD 09-10 02:05 → 2SW 09-10 02:21
PROVIDERS: ADMIT Family Medicine; ATTEND Family Medicine
DX: E11.649 Type 2 diabetes mellitus with hypoglycemia without coma (principal); G93.41 Metabolic encephalopathy; U07.1 COVID-19; I25.10 Atherosclerotic heart disease of native coronary artery without angina pectoris; F17.290 Nicotine dependence, other tobacco product, uncomplicated; I10 Essential (primary) hypertension; E78.00 Pure hypercholesterolemia, unspecified; Z79.4 Long term (current) use of insulin; Z79.84 Long term (current) use of oral hypoglycemic drugs; Z79.899 Other long term (current) drug therapy; Z88.0 Allergy status to penicillin
CPT/HCPCS: 70450; 80053; 82962 ×2; 84484; 85025; 85610; 85730; 93005; 99285; G0378 ×2; U0002; 36415; 36416; 81003; 81015; J1815

== ENCOUNTER 2022-10-07 22:02 | Emergency (ER) | payer OTHER ==
[2022-10-07 23:10] LABS: #Basophils 0.1 thou/uL (0.0-0.2); #Eosinphils 0.2 thou/uL (0.0-0.7); #Lymphocytes 1.2 thou/uL (1.20-3.40); #Monocytes 0.5 thou/uL (0.11-0.59); #Neutrophils 5.6 thou/uL (1.40-6.50); %Basophils 0.7 % (0.0-1.0); %Eosinophils 2.4 % (0.0-10.0); %Monocytes 6.3 % (0.0-10.0); %Neutrophils 74.6 % (42.0-75.0); Hemoglobin 12.8 g/dL (12.0-16.0); Mean Corpuscular HGB CONC 34.3 g/dL (32.0-36.0); Mean Corpuscular Hemoglobin 32.6 pg (27.0-31.0); Mean Corpuscular Volume 95.2 fl (78.0-98.0); Mean Platelet Volume 7.9 fL (7.4-10.4); Platelet Count 177 10x3/uL (130-400); RBC Distribution Width 12.5 % (11.5-14.5); Red Blood Cell (RBC) Count 3.91 mill/uL (4.20-5.40); White Blood Cell (WBC) Count 7.6 10x3/uL (4.8-10.8)
[2022-10-08 00:03] LABS: Chloride 107 mmol/L (98-107)
[2022-10-08 00:04] LABS: Calcium 9.4 mg/dL (7.8-10.44); Potassium 4.4 mmol/L (3.5-5.1); Sodium 140 mmol/L (136-145)
[2022-10-08 00:05] LABS: Glucose 59 mg/dL (80-115)
[2022-10-08 00:06] LABS: Anion Gap 18 mmol/L (10-20); Carbon Dioxide 19 mmol/L (23-31)
[2022-10-08 00:07] LABS: Bilirubin, Total 0.3 mg/dL (0.2-1.2)
[2022-10-08 00:08] LABS: Alkaline Phosphatase 81 U/L (40-110); Calc. Creatinine Clearance 0 mL/min (70-130); Estimated GFR 70
[2022-10-08 00:09] LABS: BUN (Urea Nitrogen) 17 mg/dL (9.8-20.1)
[2022-10-08 00:10] LABS: AST (SGOT) 37 U/L (5-34)
[2022-10-08 00:11] LABS: ALT (SGPT) 28 U/L (8-55)
== END 2022-10-08 01:40 | disposition home or self-care (01) ==
LOC: ERS 22:02
DX: E11.65 Type 2 diabetes mellitus with hyperglycemia (principal); E78.00 Pure hypercholesterolemia, unspecified; I10 Essential (primary) hypertension; F17.290 Nicotine dependence, other tobacco product, uncomplicated
CPT/HCPCS: 36415; 36416; 80053; 85025; 93005; 96374